=== PATIENT | female | born 1945 | race Caucasian/White ===

== ENCOUNTER 2021-06-09 18:33 | Emergency (ER) | payer MEDICARE ==
[~2021-06-09] VITALS: Ht 152.4 cm; Wt 49.9 kg
[2021-06-09] MEDS ORDERED: SODIUM CHLORIDE 0.9% 1000ML 1,000 ML IV STA (19:01)
[2021-06-09] MEDS ORDERED: MORPHINE SULFATE INJ 4 MG/ML INJ 1ML IV STA (19:01)
[2021-06-09] MEDS ORDERED: ONDANSETRON HCL INJ 2MG/ML 2ML 2 MG/ML VIAL IV ONE (19:15)
[2021-06-09] MEDS ORDERED: FAMOTIDINE 20 MG/2 ML VIAL IV ONE ×2 (19:15→20:07)
[2021-06-09] MEDS ORDERED: IOPAMIDOL 370 MG/ML 200 ML INFUS..BTL INJ ONE (19:25)
[2021-06-09] MEDS ORDERED: NITROGLYCERIN/D5W 200 MCG/ML 0 ML ONE (19:25)
[2021-06-09] MEDS ORDERED: KETOROLAC TROMETHAMINE 30 MG/ML VIAL IV ONE (20:00)
[2021-06-09] MEDS ORDERED: DIATRIZOATE MEGL/DIATRIZOA SOD 30 ML BTL PO ONE (20:03)
[2021-06-09] MEDS ORDERED: KETOROLAC TROMETHAMINE 30 MG/ML VIAL ONE (20:06)
[2021-06-09] MEDS ORDERED: ONDANSETRON HCL INJ 2MG/ML 2ML 2 MG/ML VIAL ONE (20:06)
[2021-06-09] MEDS ORDERED: SODIUM CHLORIDE 0.9% 1000ML 1,000 ML ONE (20:07)
[2021-06-09] MEDS ORDERED: MORPHINE SULFATE INJ 4 MG/ML INJ 1ML ONE (20:07)
[2021-06-09 22:08] VITALS: BP 130/67
== END 2021-06-09 22:08 | disposition home or self-care (01) ==
LOC: FSED 18:40
DX: R11.2 Nausea with vomiting, unspecified (principal); R10.9 Unspecified abdominal pain; K59.01 Slow transit constipation; E86.0 Dehydration
CPT/HCPCS: 74176; 80053; 81003; 85025; 96374; 96375; 96376; 99284; J1885; J2405; J7030; J2270; Q9967